=== PATIENT | female | born 1945 | race Caucasian/White ===

== ENCOUNTER 2016-07-13 11:31 | Observation (INO) | payer MEDICARE, OTHER ==
[2016-07-13 12:13] LABS: BASOPHILS 0.3 % (0.0-2.0); EOSINOPHILS 1.5 % (0.0-6.0); EOSINOPHILS# 0.1 X 10^3uL (0.0-0.4); HEMATOCRIT 40.1 % (36.0-48.0); HEMOGLOBIN 13.7 g/dL (12.0-16.0); LYMPHOCYTES# 1.4 X 10^3uL (0.8-3.8); MEAN CELL VOLUME 90.2 fL (80.0-100.0); MEAN CORPUS. HGB CONCENTRATION 34.2 g/dL (32.0-36.0); MEAN CORPUSCULAR HEMOGLOBIN 30.8 pg (29.0-35.0); MONOCYTES# 0.6 X 10^3uL (0.2-1.0); NEUTROPHILS 68.2 % (54.0-75.0); NEUTROPHILS# 4.5 X 10^3uL (2.6-6.7); RED BLOOD COUNT 4.45 X 10^6uL (4.20-6.10); RED CELL DISTRIBUTION WIDTH 12.9 % (11.5-14.5); WHITE BLOOD COUNT 6.6 X 10^3uL (3.9-10.7)
[2016-07-13 12:18] LABS: CALCIUM 9.7 mg/dL (8.4-10.2); POTASSIUM 3.7 mmol/L (3.5-5.1)
--- NOTE | 2016-07-13 12:45 | CT REPORT ---
HISTORY: Blurred vision COMPARISON: None. TECHNIQUE: Axial non-contrast images obtained from skull vertex through foramen magnum. Dose reduction technique was utilized. FINDINGS: There is mild cerebral volume loss. A right frontal ventriculostomy shunt catheter terminates in the frontal horn of right lateral ventricle. The ventricles are slitlike, due to decompression. No mass o r hemorrhage is demonstrated. There is no extra-axial fluid collection. There is bifrontal cranial hy perostosis, a normal variant. There is no fracture. Visualized paranasal sinuses are unremarkable. IMPRESSION: 1. Ventricular shunt catheter in good position, with no ventricular enlargement indicating dysfunctio n. 2. Mild cerebral volume loss. 3. Otherwise unremarkable brain, with no mass, hemorrhage, or acute infarct. Final Electronic Signature: This report was electronically signed by Solomon Lopez MD on 07/13/2016 12:43 PM. shai /
[2016-07-13] MEDS ORDERED: LIDOCAINE HCL 2% 20 ML VIAL ONE (13:48)
[2016-07-13] MEDS ORDERED: ACETAMINOPHEN 325 MG TABLET PO PRN (14:54)
[2016-07-13] MEDS ORDERED: HOME MEDICATION LIST NEEDED 1 EA EACH MC ONE (14:54)
[2016-07-13] MEDS ORDERED: NORMAL SALINE 1,000 ML IV SCH (15:00)
--- NOTE | 2016-07-13 15:43 | ER PHYSICIAN DOCUMENTATION ---
Physician Documentation [facility] Name:Sejal Hopkins Age:70 yrs Sex:Female :1945 Arrival Date:07/13/2016 Time:11:31 Bed3 Private MD: Jason Garcia Disposition: 07/13/16 14:58 Admit ordered for Julisa Arrington. Preliminary diagnosis are Diplopia, Ataxic Gait, Obstructive Hydrocephalus - NPH. - Bed requested for Medical/Surgical. - Condition is Fair. - Problem is new. - Symptoms have improved. 23 HR OBS Yes HPI: 07/13 13:46 This 70 yrs old Female presents to ER via Private Vehicle with complaints of jm Blurred Vision. 13:46 The patient is experiencing double vision, caused by an unknown mechanism. Onset: The jm symptom(s)/episode began/occurred just prior to arrival, today. Duration: the symptoms are continuous. Alleviated by nothing. Associated signs and symptoms: Pertinent positives: ataxia and myoclonic jerks. . Patient wears glasses. Severity of symptoms: in the emergency department the symptoms are unchanged. The patient has not experienced similar symptoms in the past. The patient has not recently seen a physician. 70 yo F w hx of NPH w PAINT ROLLER WINDER shunt here for acute onset of double vision. Pt states that her coordination and balance is also off. Pt has mild HAINES. . Historical: - Allergies: TETRACYCLINES; Levaquin; - Home Meds: 1. Wellbutrin XL 300 mg oral Tb24 1 tab once daily for Major Depressive Disorder 2. Lamictal oral 1 tab 2 times per day 3. Seroquel 400 mg oral tab 1 tab once daily 4. clonazepam 1 mg oral tab 1 tab Q HS 5. Ambien 5 mg oral tab 1 tab once daily 6. Deplin 15 mg oral tab 7. Multigen [id number] pt-lz-[id number]-mg oral tab 8. hydrocortisone 10 mg oral tab 9. levothyroxine 25 mcg oral tab 1 tab once daily 10. atorvastatin 10 mg oral tab 1 tab once daily 11. aspirin 81 mg oral tab 1 tab once daily 12. Zyrtec 10 mg oral tab 1 tab once daily 13. restasis - PMHx: DEPRESSION; epilepsy; normal pressure hydrocephaly; ANXIETY; insomnia; hyperlipidemia; allergic rhinitis; - PSHx: Unable to obtain; - Tetanus: < 10 years. - Ebola Screening: : Patient negative for fever greater than or equal to 101.5 degrees Fahrenheit, and additional compatible Ebola Virus Disease symptoms. Patient denies exposure to infectious person. Patient denies travel to an Ebola-affected area in the 21 days before illness onset. . - Immunization history: Pneumococcal vaccine is up to date, Flu Vaccine < 1 year. - Social history: Smoking status: Patient states was never smoker of tobacco. ROS: 14:14 Constitutional: Negative for fatigue, fever, malaise. jm 14:14 Eyes: Positive for visual disturbance. 14:14 Neck: Negative for stiffness, swelling. 14:14 Cardiovascular: Negative for chest pain, palpitations. 14:14 Respiratory: Negative for cough, shortness of breath. 14:14 Abdomen/GI: Negative for abdominal pain, nausea, vomiting, diarrhea. 14:14 Back: Negative for injury or acute deformity, decreased range of motion. 14:14 MS/extremity: Negative for injury or acute deformity, tenderness. 14:14 Neuro: Positive for dizziness, gait disturbance, headache, visual changes. 14:14 Psych: Negative for anxiety, depression. 14:14 All other systems are negative. Exam: 14:15 Constitutional: The patient appears alert, awake, comfortable. jm 14:15 Eyes: Pupils: equal, round, and reactive to light and accomodation, Extraocular movements: intact throughout, Nystagmus: nystagmus with fast component noted, bilaterally. 14:15 ENT: Mouth: is normal, Voice: is normal. 14:15 Neck: Thyroid: appears normal, Trachea: is midline with no obvious abnormalities. 14:15 Cardiovascular: Rate: normal, Rhythm: regular. 14:15 Respiratory: Respirations: normal, Breath sounds: are normal. 14:15 Abdomen/GI: Bowel sounds: normal, Palpation: abdomen is soft and non-tender. 14:15 Back: normal spinal alignment noted, CVA tenderness, is absent. 14:15 Musculoskeletal/extremity: ROM: intact in all extremities, Sensation intact. Weight bearing: can bear weight with assistance only. 14:15 Skin: Appearance: Color: pink, no rash present. 14:15 Neuro: Mentation: is normal, Memory: is normal, Cranial nerves: CN II- XII are normal as tested, Cerebellar function: dysmetria is noted on both sides, Motor: strength is 5/5 in all extremities, Sensation: is normal, Gait: ataxic. 14:15 Psych: Behavior/mood is pleasant, cooperative, Affect is calm. Vital Signs: 11:48 BP 177 / 80; Pulse 86; Resp 16; Temp 98.0(O); Pulse Ox 97% on R/A; Weight 68.04 kg; lp Height 5 ft. 10 in. (177.80 cm); Pain 0/10; 11:55 BP 176 / 94; Pulse 84; Resp 18; Pulse Ox 97% on R/A; lc 12:14 BP 173 / 86; Pulse 84; Resp 18; Pulse Ox 95% ; lc 12:56 BP 169 / 78; Pulse 80; Resp 16; Pulse Ox 93% ; Pain 2/10; lc 13:15 BP 167 / 73; Pulse 85; Resp 19; Pulse Ox 94% on R/A; Pain 0/10; rs 13:30 BP 158 / 79; Pulse 85; Resp 18; Pulse Ox 93% on R/A; Pain 0/10; rs 13:51 BP 179 / 83; Pulse 89; Resp 21; Pulse Ox 93% on R/A; Pain 0/10; rs 14:00 BP 167 / 90; Pulse 88; Resp 18; Pulse Ox 96% on R/A; Pain 0/10; rs 14:16 BP 186 / 91; Pulse 96; Resp 18; Pulse Ox 96% on R/A; Pain 0/10; rs 11:48 Body Mass Index 21.52 (68.04 kg, 177.80 cm) lp Procedures: 14:18 Lumbar Puncture: Patient placed in sitting position. Prepped with Betadine. Collected jm 25 ml's of clear fluid. Puncture site dressed with band aid, Patient tolerated well. MDM: 11:35 Patient medically screened. jm 14:16 Differential diagnosis: PAINT ROLLER WINDER shunt malfunction, NPH exacerbation. Data reviewed: vital jm signs, nurses notes, lab test result(s), and as a result, I will initiate a consult, with a neurosurgeon. Counseling: I had a detailed discussion with the patient and/or guardian regarding: the historical points, exam findings, and any diagnostic results supporting the discharge/admit diagnosis, lab results, radiology results, the need for outpatient follow up, a neurosurgeon. Response to treatment: the patient's symptoms have markedly improved after treatment. Physician consultation: Dr Liao regarding patient's condition, Neurosurgery from [facility]. He states that pulling off some CSF should alleviate her sx and buy her some time to f/u her neurosurgeon back in [place]. Pt agreeable to this. . 14:56 Admission orders: after a detailed discussion of the patient's condition and case, the admit orders are written by me. ED course: LP done, but pt still w mild diplopia, so I feel an observation admission is warranted. Dr. Arrington agrees. Pt hopefully w improve to the point where she can drive by tomorrow AM. 07/13 12:16 Order name: CBC AUTO DIF, MDIF/RMOR IF IND; Complete Time: 12:54 EDMS 07/13 12:38 Order name: PROTIME/INR; Complete Time: 12:54 EDMS 07/13 12:39 Order name: BASIC METABOLIC PANEL; Complete Time: 12:54 EDMS 07/13 12:11 Order name: CAT SCAN; HEAD W/O CON [id number] EDNV 07/13 12:48 Order name: CAT SCAN; HEAD W/O CON [id number]; Complete Time: 12:54 EDMS 07/13 11:57 Order name: Iv Saline Lock; Complete Time: 12:10 Dispensed Medications: Completed: NS 0.9% 1000 ml IV at bolus once 12:10 Drug: NS 0.9% 1000 ml; Route: IV; Rate: bolus; Site: right forearm; lp 14:00 Follow up: IV Status: Completed infusion rs Point of Care Testing: Urine Dip: 12:50 pH: 6.0; ; Specific [place]: 1.010; Ketones: Negative; Glucose: Negative; Protein: lc Negative; Leukocytes: Negative; Nitrite: Negative ; Blood: Small (+); Bilirubin: Negative ; Urobilinogen: Normal Signatures: Natalya Baez RN RN rs Pavlish, Lena, RN RN lp Meyer, John, MD MD jm
--- NOTE | 2016-07-13 15:43 | ER NURSING DOCUMENTATION ---
Nurse's Notes [facility] Name:Sejal Hopkins Age:70 yrs Sex:Female :1945 Arrival Date:07/13/2016 Time:11:31 Bed3 Private MD: Diagnosis:Diplopia;Ataxic Gait;Obstructive Hydrocephalus-NPH Presentation: 07/13 11:43 Presenting complaint: Patient states: dizziness. Transition of care: Home. lp 11:43 Method Of Arrival: Private Vehicle lp 11:43 Acuity: ANGELINA 3 lp Triage Assessment: 11:51 General: Appears in no apparent distress, Behavior is appropriate for age. Pain: Denies lp pain. Historical: - Allergies: TETRACYCLINES; Levaquin; - Home Meds: 1. Wellbutrin XL 300 mg oral Tb24 1 tab once daily for Major Depressive Disorder 2. Lamictal oral 1 tab 2 times per day 3. Seroquel 400 mg oral tab 1 tab once daily 4. clonazepam 1 mg oral tab 1 tab Q HS 5. Ambien 5 mg oral tab 1 tab once daily 6. Deplin 15 mg oral tab 7. Multigen [id number] qu-us-kln-mg oral tab 8. hydrocortisone 10 mg oral tab 9. levothyroxine 25 mcg oral tab 1 tab once daily 10. atorvastatin 10 mg oral tab 1 tab once daily 11. aspirin 81 mg oral tab 1 tab once daily 12. Zyrtec 10 mg oral tab 1 tab once daily 13. restasis - PMHx: DEPRESSION; epilepsy; normal pressure hydrocephaly; ANXIETY; insomnia; hyperlipidemia; allergic rhinitis; - PSHx: Unable to obtain; - Tetanus: < 10 years. - Ebola Screening: : Patient negative for fever greater than or equal to 101.5 degrees Fahrenheit, and additional compatible Ebola Virus Disease symptoms. Patient denies exposure to infectious person. Patient denies travel to an Ebola-affected area in the 21 days before illness onset. . - Immunization history: Pneumococcal vaccine is up to date, Flu Vaccine < 1 year. - Social history: Smoking status: Patient states was never smoker of tobacco. Screenin:54 Infectious Disease Risk None. Abuse screen: Denies threats or abuse. Denies injuries lp from another. Nutritional screening: No deficits noted. Assessment: 11:53 General: Appears in no apparent distress, Behavior is appropriate for age. Neuro: Level lp of Consciousness is awake, alert, Oriented to person, place, time, event, Material Control Analyst are equal bilaterally Moves all extremities. Reports blurred vision dizziness. EENT: Reports blurred vision since This morning. Cardiovascular: No deficits noted. Capillary refill < 3 seconds Pulses are all present. Respiratory: Airway is patent Trachea midline Respiratory effort is even, unlabored, Respiratory pattern is regular, symmetrical. GI: No deficits noted. : No deficits noted. Derm: No deficits noted. 12:56 Reassessment: UP TO COMMODE, SHAKEY ON FEET, US DONE, STILL C/O DIZZINESS, SL HAINES. NEURO lc CONSULT DONE.. Vital Signs: 11:48 BP 177 / 80; Pulse 86; Resp 16; Temp 98.0(O); Pulse Ox 97% on R/A; Weight 68.04 kg; lp Height 5 ft. 10 in. (177.80 cm); Pain 0/10; 11:55 BP 176 / 94; Pulse 84; Resp 18; Pulse Ox 97% on R/A; lc 12:14 BP 173 / 86; Pulse 84; Resp 18; Pulse Ox 95% ; lc 12:56 BP 169 / 78; Pulse 80; Resp 16; Pulse Ox 93% ; Pain 2/10; lc 13:15 BP 167 / 73; Pulse 85; Resp 19; Pulse Ox 94% on R/A; Pain 0/10; rs 13:30 BP 158 / 79; Pulse 85; Resp 18; Pulse Ox 93% on R/A; Pain 0/10; rs 13:51 BP 179 / 83; Pulse 89; Resp 21; Pulse Ox 93% on R/A; Pain 0/10; rs 14:00 BP 167 / 90; Pulse 88; Resp 18; Pulse Ox 96% on R/A; Pain 0/10; rs 14:16 BP 186 / 91; Pulse 96; Resp 18; Pulse Ox 96% on R/A; Pain 0/10; rs 11:48 Body Mass Index 21.52 (68.04 kg, 177.80 cm) lp ED Course: 11:32 Patient arrived in ED. cc 11:36 Jason Sanches MD is Attending Physician. jm 11:43 Margarette Toledo, RN is Primary Nurse. lp 11:43 Triage completed. lp 11:[address] Sanches notified. lp 11:54 Valuables Remains with patient Patient has correct armband on for positive lp identification. Placed in gown. Bed in low position. Call light in reach. Side rails up X 1. Cardiac Monitoring On for Nurse Monitoring only. Pulse Ox - RN Monitoring Only NIBP On - RN Monitoring Only. 11:54 Inserted peripheral IV: 20 gauge in right forearm. lp 11:54 Inserted peripheral IV: 20 gauge in right forearm and blood collected. lp 11:[address] kamari 12:11 CAT SCAN; HEAD W/O CON 01100 In Process Unspecified. EDMS 12:12 Patient moved back from CT. tt 13:50 Door closed. Noise minimized. Verbal reassurance given. Warm blanket given. Sitting up rs on side of bed with bedside table to bend over and lean on. Blankets over her shoulders. Pulse ox, monitor and BP on. 13:50 Assist Provider Assist provider with lumbar puncture: Set up LP tray. Performed by Jason Sanches MD CSF is clear. Puncture site dressed with band aid, Procedure was successful. Patient tolerated well. Finished procedure at 1412. Pt feels good. Double vision remains. Assisted with phone call to her brother. 14:57 Julisa Arrington MD is Admitting Physician. nadine Administered Medications: Completed: NS 0.9% 1000 ml IV at bolus once 12:10 Drug: NS 0.9% 1000 ml; Route: IV; Rate: bolus; Site: right forearm; lp 14:00 Follow up: IV Status: Completed infusion Point of Care Testing: Urine Dip: 12:50 pH: 6.0; ; Specific [place]: 1.010; Ketones: Negative; Glucose: Negative; Protein: lc Negative; Leukocytes: Negative; Nitrite: Negative ; Blood: Small (+); Bilirubin: Negative ; Urobilinogen: Normal Outcome: 14:58 Decision to Admit by Provider. 15:40 Admitted to Med/surg accompanied by nurse, via stretcher, with chart. rs 15:40 Condition: improved 15:40 Instructed on need to admit Demonstrated understanding of instructions. 15:42 Patient left the ED. rs Signatures: Dispatcher [employer] EDVT Natalya Baez RN RN rs Shadia Aaron RN RN lc Pavlish, Lena, RN RN lp Meyer, John, MD MD jm Terriere, Tracy tt Abbott, Laura lea Cramer, Ruthie zambrano
[2016-07-13] MEDS: ZOLPIDEM TARTRATE 5 MG TABLET PO SCH (21:00)
[2016-07-13] MEDS: LAMOTRIGINE 250 MG PO SCH (21:00)
[2016-07-13] MEDS: clonazePAM 0.5 MG TABLET PO SCH (21:00)
[2016-07-13] MEDS: QUETIAPINE FUMARATE 400 MG PO SCH (21:00)
[2016-07-13] MEDS: HYDROCORTISONE 10 MG PO SCH (21:00)
[2016-07-14] MEDS: DOCUSATE SODIUM 100 MG CAPSULE PO SCH ×3 (06:42→20:33)
[2016-07-14] MEDS: ATORVASTATIN CALCIUM 10 MG TABLET PO SCH ×2 (06:45→20:40)
[2016-07-14] MEDS: CYCLOSPORINE OPHTH 0.05% 1 DROP/0.4 ML DROPERETTE EACHEYE SCH ×3 (06:46→20:41)
--- NOTE | 2016-07-14 07:14 | HISTORY & PHYSICAL ---
DATE OF ADMISSION: 07/13/16 ATTENDING PHYSICIAN: Julisa Arrington MD HISTORY OF PRESENT ILLNESS: This very interesting and pleasant 70-year-old lady is visiting from [place]. She has been in [place] for a week, somewhat sedentary because of our recent huge snow. Today, she was driving her rental car towards the airport and noted that she was not in her usual condition. She felt that her thinking was fuzzy. 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 She came to the Emergency Room, took some Meclizine in order to negotiate walking into the Emergency Room, feeling somewhat dizzy and having fairly frequent myoclonic jerks. The patient had just seen her neurosurgeon 2 weeks ago for assessment of her longstanding ventriculoperitoneal shunt. The pressure setting was apparently set to 1.5 and the neurosurgeon felt content that all was as should be. The CT in the Emergency Room did not show any dilation of ventricular spaces. Dr. Gay was so good as to speak with a Dr. Liao Neurosurgery at [facility] regarding the situation. Dr. Gay removed 20 mL of cerebrospinal fluid as directed by neurosurgery, and in fact that the patient feels that her symptoms are markedly improved over the last 6 hours. The diplopia continues and is not corrected by her lenses as it usually is. However , the fuzzy thinking and the tight feeling in her body, the frequent myoclonic jerks (they were happening every 30 seconds) have resolved. The patient is encouraged, although not quite sure what to do to plan her return to [facility] and is here for observation overnight in hopes that her neurological complaints will completely resolve or nearly completely resolve so she can fly home to consider all with her neurosurgeon again. She understands that if things go the other way and we have increasing concerns, she will need to be transferred to a larger medical center. PAST MEDICAL HISTORY 1. Depression. 2. Anxiety. 3. Bipolar illness. 4. Normal pressure hydrocephalus for which she has the shunt. 5. Insomnia. 6. Hyperlipidemia. 7. Allergic rhinitis. PAST SURGICAL HISTORY 1. The shunt was placed originally in 2008. It was replaced spring a year ago. 2. She has had a right knee replacement. 3. Extensive left shoulder surgery. 4. 1 year ago because of some right sided pain, she had a series of abdominal surgeries including removal of a benign adrenal tumor, appendectomy, partial colectomy and cholecystectomy. She has had no known complications from these procedures. MEDICATIONS Wellbutrin XL 300 mg p.o. daily. Lamictal 250 mg p.o. b.i.d. Seroquel 400 mg at h.s. Clonazopam 1 mg p.o. at h.s. Ambien 5 mg p.o. at h.s. Deplin which is a vitamin of some sort 15 mg p.o. daily. Multigen vitamin also about 3 times a week. Hydrocortisone she normally 5 mg in the evening and 10 mg in the a.m. Levothyroxine 25 mcg p.o. daily. Atorvastatin 10 mg p.o. daily. Aspirin 81 mg p.o. daily. Zyrtec 10 mg p.o. daily. Restasis eye drops. ALLERGIES: Tetracyclines and Levaquin. SOCIAL HISTORY: She does not smoke. She does not drink alcohol. She is a retired teacher living in [place] but loving to vacation in [place] in the summer. She has not had any problems at altitude with her shunt before, and clearly she has had the shunt for quite a few years. REVIEW OF SYSTEMS: Negative until the events this afternoon which brought her to the Emergency Room. DATA FROM EMERGENCY ROOM: Negative CT of the head showing appropriately functioning shunt, completely normal chemistry, CBC and an INR of 1. PHYSICAL EXAMINATION VITAL SIGNS: The vital signs on the floor, she is afebrile. Blood pressure is 141/68, pulse 78, respiratory rate 12. She is 93% on room air at rest. GENERAL: She is a pleasant lady in no acute distress. HEENT: She does tend to squint 1 eye or the other shunt in order to cope with the diplopia. The is no obvious divergent gaze. Extraocular movements are grossly intact. Other cranial nerves are unremarkable and symmetric. CARDIAC: Distant S1, S2. No murmur. CHEST: Clear to auscultation. ABDOMEN: Slightly protuberant, soft and nontender. EXTREMITIES: Without edema. Negative Homans sign. NEUROLOGIC: Cranial nerves are symmetric as stated. The pupils are equal, round and reactive to light. Strength is good in upper and lower extremities. She does not have any tingling or numbness to complain of. ASSESSMENT AND PLAN 1. Very discrete neurologic complaints which have improved with removal of cerebrospinal fluid as directed by neurosurgery. It does not appear that there is any gross dysfunction of her shunt. The hope is with overnight monitoring she will feel safe and functional enough to be able to travel home to take up this event with her neurosurgeon. However, if things deteriorate, she knows that we will need to transfer her to a larger medical center. 2. Chronic medical issues. Her usual medications will be continued at their normal doses, although I would see a role for increasing her Hydrocortisone this evening as this is certainly a stressful situation. 3. Deep vein thrombosis prophylaxis. Patient shows willingness and comfort level with walking with staff this evening and REG hose will be applied. We will avoid Lovenox as she has just had a lumbar puncture and I really do not believe it will be long before she is ambulatory. MTDD
--- NOTE | 2016-07-14 09:05 | PROGRESS NOTE: IM SOAP ---
IM: PN Subjective General: no pain HEENT: visual changes (but back to baseline) Neurological: limb weakness (does feel weak after walking), no headache IM: PN Objective Exam - I&O/Vital Signs I&O: Intake & Output 07/13/16 07/14/16 07/14/16 21:59 05:59 13:59 Intake Total 420 350 Output Total 600 600 200 Balance -180 -250 -200 Intake: Oral 420 350 Output: Urine 600 600 200 Other: Urine Appearance Clear Clear Clear Urine Color Pale Yellow Voiding Method Toilet Bedside Commode Toilet # Voids 3 # Bowel Movements 0 Vital Signs: Last Vital Signs Temp 36.8 C 07/14/16 06:23 Pulse 76 07/14/16 06:23 Resp 15 07/14/16 06:23 BP 143/72 07/14/16 06:23 Pulse Ox 94 07/14/16 06:23 Oxygen Delivery Method Room Air - Constitutional General appearance: Present: average body habitus - Head Head exam: Present: atraumatic - Eye Eye exam: Present: EOMI, PERRL - ENT ENT exam: Present: mucous membranes moist - Neck Neck exam: Absent: lymphadenopathy, meningismus - Respiratory Respiratory exam: Present: clear - Cardiovascular Cardiovascular exam: Present: RRR - GI/Abdominal GI/Abdominal exam: Present: soft - Extremities Exam Extremities exam: Absent: edema - Neurological Exam Neurological exam: Present: alert, oriented X3 - Psychiatric Psychiatric exam: Present: normal affect - Lab Labs: Laboratory Last Values WBC 6.6 X 10^3uL (3.9-10.7) 07/13/16 14:14 RBC 4.45 X 10^6uL (4.20-6.10) 07/13/16 14:14 Hgb 13.7 g/dL (12.0-16.0) 07/13/16 14:14 Hct 40.1 % (36.0-48.0) 07/13/16 14:14 MCV 90.2 fL (80.0-100.0) 07/13/16 14:14 MCH 30.8 pg (29.0-35.0) 07/13/16 14:14 MCHC 34.2 g/dL (32.0-36.0) 07/13/16 14:14 RDW 12.9 % (11.5-14.5) 07/13/16 14:14 Plt Count 335 X 10^3uL (130-440) 07/13/16 14:14 MPV 7.0 fL (7.4-10.4) L 07/13/16 14:14 Neutrophils % 68.2 % (54.0-75.0) 07/13/16 14:14 Lymphocytes % 21.0 % (20.0-40.0) 07/13/16 14:14 Eosinophils % 1.5 % (0.0-6.0) 07/13/16 14:14 Basophils % 0.3 % (0.0-2.0) 07/13/16 14:14 Neutrophils # 4.5 X 10^3uL (2.6-6.7) 07/13/16 14:14 Lymphocytes # 1.4 X 10^3uL (0.8-3.8) 07/13/16 14:14 Monocytes 9.0 % (2.0-10.0) 07/13/16 14:14 Monocytes # 0.6 X 10^3uL (0.2-1.0) 07/13/16 14:14 Eosinophils # 0.1 X 10^3uL (0.0-0.4) 07/13/16 14:14 Basophils # 0.0 X 10^3uL (0.0-0.1) 07/13/16 14:14 PT 14.0 sec (13.0-16.6) 07/13/16 14:14 INR 1.0 07/13/16 14:14 Sodium 142 mmol/L (137-145) 07/13/16 14:14 Potassium 3.7 mmol/L (3.5-5.1) 07/13/16 14:14 Chloride 101 mmol/L (98-107) 07/13/16 14:14 Carbon Dioxide 27 mmol/L (22-30) 07/13/16 14:14 BUN 12 mg/dL (7-17) 07/13/16 14:14 Creatinine 1.0 mg/dL (0.5-1.0) 07/13/16 14:14 GFR Calculation 58 mL/min 07/13/16 14:14 Glucose 79 mg/dL (70-100) 07/13/16 14:14 Calcium 9.7 mg/dL (8.4-10.2) 07/13/16 14:14 Assessment and Plan - Date of Encounter Date of Encounter: 07/14/16 (1) Diplopia Status: Chronic Assessment and plan: The acute portion is resolved. Pt is using her phone with corrective lenses and is reassured. Current Visit: Yes (2) Myoclonic jerking Status: Resolved Assessment and plan: Resolved after aspiration of 20 cc CSF Current Visit: Yes (3) Normal pressure hydrocephalus Status: Chronic Assessment and plan: Has CUSTOMER SPECIALIST shunt which by CT appears to be working well. I am not sure why she is having these issues 2 wks after seeing neurosurg with good shunt assessment, but if she is clinically improved and able to travel, she will return to [place] and review all with her doc. This episode reviewed with neurosurgery by ED doc yesterday, and this plan approved. Will have PT assess and let pt take some time to assure safe to travel and make her travel arrangements. Current Visit: Yes - Time Spent With Patient Total time spent with greater than 50% in coordination of care (as documented) at patient's floor/unit and/or counseling patient: Quality Questions - VTE Prophylaxis Assessment VTE Present on Admission?: No Patient at risk for venous thromboembolism?: Yes VTE Risk Level: Low Risk Pharmaceutical VTE prophylaxis contraindication reason: not indicated Mechanical VTE prophylaxis contraindication reason: N/A- VTE prophylaxsis ordered
[2016-07-14] MEDS: buPROPion XL DAILY 150 MG TABLET PO SCH (09:07)
[2016-07-14] MEDS: LEVOTHYROXINE 25 MCG TABLET PO SCH (09:08)
[2016-07-14] MEDS: HYDROCORTISONE 10 MG PO SCH ×2 (09:42→20:35)
[2016-07-14] MEDS: LAMOTRIGINE 250 MG PO SCH ×2 (09:42→20:34)
[2016-07-14] MEDS: QUETIAPINE FUMARATE 400 MG PO SCH (20:35)
[2016-07-14] MEDS: ZOLPIDEM TARTRATE 5 MG TABLET PO SCH (20:40)
[2016-07-14] MEDS: clonazePAM 0.5 MG TABLET PO SCH (20:41)
[2016-07-15] MEDS: DOCUSATE SODIUM 100 MG CAPSULE PO SCH (09:24)
[2016-07-15] MEDS: LEVOTHYROXINE 25 MCG TABLET PO SCH (09:25)
[2016-07-15] MEDS: CYCLOSPORINE OPHTH 0.05% 1 DROP/0.4 ML DROPERETTE EACHEYE SCH (09:25)
[2016-07-15] MEDS: HYDROCORTISONE 10 MG PO SCH (09:25)
[2016-07-15] MEDS: buPROPion XL DAILY 150 MG TABLET PO SCH (09:25)
[2016-07-15] MEDS: LAMOTRIGINE 250 MG PO SCH (09:25)
--- NOTE | 2016-07-15 11:04 | DC SUMMARY: IM Note ---
Discharge Summary: IM/Peds Provider: Date of Admission: 07/13/16 Admitting Provider: JOLENE SANTO MD Attending Provider: JOLENE SANTO MD Discharging Provider: JOLENE SANTO MD Primary Care Provider: Discharge Date: 07/15/16 - Diagnosis (1) Diplopia Status: Chronic (2) Myoclonic jerking Status: Resolved (3) Normal pressure hydrocephalus Status: Chronic Hospital Course: See H&P and progress note; pt has progressed nicely as expected, with complete resolution of neurologic symptoms after aspiration of 20cc CSF by ED doc, at advice of consulting [place] neurosurgeon; she feels great showering, walking, self care. PT has rec'd walker and she has a loaner. She will return to [facility] until travel plans begin on Tuesday. She will contact me if symptoms or problems recur. - Time Spent with Patient Total time spent providing and/or coordinating discharge services: Discharge - Patient/Caregiver Discharge Instructions Activity Level: Take it easy; sounds like you are more stable with the walker, so use it while you have it! I approve of getting assistance and wheelchair to/ at airport, all the way home. Diet: Usual Additional Instructions: See your neurosurgeon XUAN to review all. Disposition: HOME, SELF-CARE Discharge Summary Data - Medication History Medication History: Home Medications Atorvastatin Calcium [Lipitor*] 10 mg PO HS 07/13/16 Cetirizine HCl [Zyrtec] 10 mg PO HS 07/13/16 Cyclosporine Ophth 0.05% [Restasis Ophth Emul 0.05%] 1 drop EACHEYE BID Docusate Sodium [Colace*] 100 mg PO BID 07/13/16 Hydrocortisone 5 mg PO HS 07/13/16 Hydrocortisone 10 mg PO DAILY 07/13/16 Lamotrigine 200 mg PO BID 07/13/16 Levomefolate/Algal Oil [Deplin-Algal Oil 15 mg Capsule] 1 cap PO DAILY 07/13/16 Levothyroxine [Synthroid*] 25 mcg PO DAILY 07/13/16 Multivitamins,Therapeutic [Thera Multivitamin*] 1 udtab PO DAILY 07/13/16 Quetiapine Fumarate [Seroquel Xr] 400 mg PO HS 07/13/16 Zolpidem Tartrate [Ambien*] 5 mg PO HS 07/13/16 aspirin EC [Aspirin EC*] 81 mg PO DAILY 07/13/16 buPROPion XL DAILY [Wellbutrin Xl Daily*] 300 mg PO DAILY 07/13/16 clonazePAM [Klonopin*] 1 mg PO HS 07/13/16 Inpatient Medications 07/13/16 21:00 Atorvastatin Calcium [Lipitor] 10 mg PO HS Cyclosporine Ophth 0.05% [Restasis Ophth Emul 0.05%] 1 drop EACHEYE BID Docusate Sodium [Colace] 100 mg PO BID Hydrocortisone [Hydrocortisone] 10 mg PO BID Lamotrigine [Lamotrigine] 250 mg PO BID Quetiapine Fumarate [Seroquel Xr] 400 mg PO HS Zolpidem Tartrate [Ambien] 5 mg PO HS clonazePAM [KlonoPIN] 1 mg PO HS 07/14/16 09:00 Levothyroxine [Synthroid] 25 mcg PO DAILY aspirin EC [Ecotrin 81 mg] 81 mg PO DAILY buPROPion XL DAILY [Wellbutrin Xl Daily] 300 mg PO DAILY Procedures and tests throughout hospitalization: Pending Orders 07/13/16 20:04 Activity: Ambulate with Assist TID REG Hose . 07/13/16 21:00 Atorvastatin Calcium [Lipitor] 10 mg PO HS Cyclosporine Ophth 0.05% [Restasis Ophth Emul 0.05%] 1 drop EACHEYE BID Docusate Sodium [Colace] 100 mg PO BID Hydrocortisone [Hydrocortisone] 10 mg PO BID Lamotrigine [Lamotrigine] 250 mg PO BID Quetiapine Fumarate [Seroquel Xr] 400 mg PO HS Zolpidem Tartrate [Ambien] 5 mg PO HS clonazePAM [KlonoPIN] 1 mg PO HS 07/14/16 09:00 Levothyroxine [Synthroid] 25 mcg PO DAILY aspirin EC [Ecotrin 81 mg] 81 mg PO DAILY buPROPion XL DAILY [Wellbutrin Xl Daily] 300 mg PO DAILY 07/15/16 10:55 Discharge ONCE IM: Discharge Physical Exam - I&O/Vital Signs I&O: Intake & Output 07/14/16 07/15/16 07/15/16 21:59 05:59 13:59 Intake Total 1160 400 Output Total 1325 400 Balance -165 0 Intake: Oral 1160 400 Output: Urine 1325 400 Other: Urine Appearance Clear Clear Urine Color Pale Yellow Stool Size Moderate Stool Characteristics Soft Voiding Method Toilet Toilet # Bowel Movements 1 Vital Signs: Last Vital Signs Temp 36.8 C 07/15/16 06:40 Pulse 70 07/15/16 06:40 Resp 16 07/15/16 06:40 BP 105/55 07/15/16 06:40 Pulse Ox 92 07/15/16 06:40 Oxygen Delivery Method Room Air - Constitutional General appearance: Present: average body habitus - Head Head exam: Present: atraumatic - Eye Eye exam: Present: EOMI, PERRL - ENT ENT exam: Present: mucous membranes moist - Neck Neck exam: Absent: lymphadenopathy, meningismus - Respiratory Respiratory exam: Present: clear - Cardiovascular Cardiovascular exam: Present: RRR - GI/Abdominal GI/Abdominal exam: Present: soft - Extremities Exam Extremities exam: Absent: edema - Neurological Exam Neurological exam: Present: alert, oriented X3 - Psychiatric Psychiatric exam: Present: normal affect
[2016-07-15 11:33] VITALS: BP 120/67; PULSE 91; RESP 20; TEMP 98.5; O2SAT 94
== END 2016-07-15 10:55 | disposition home or self-care (01) ==
LOC: ER 11:31 → IN 15:17
PROVIDERS: ADMIT Family Medicine; ATTEND Family Medicine
DX: H53.2 Diplopia (principal); G25.3 Myoclonus; G91.2 (Idiopathic) normal pressure hydrocephalus; F41.8 Other specified anxiety disorders; F31.9 Bipolar disorder, unspecified; G47.00 Insomnia, unspecified; E78.5 Hyperlipidemia, unspecified; J30.9 Allergic rhinitis, unspecified; Z79.899 Other long term (current) drug therapy
CPT/HCPCS: 62270; 70450; 80048; 85025; 85610; 96360; 96361; 99285; G0378; G8978; G8979

== ENCOUNTER 2016-07-16 10:45 | Emergency (ER) | payer MEDICARE, OTHER ==
[2016-07-16 11:41] LABS: BASOPHILS 0.9 % (0.0-2.0); EOSINOPHILS 1.6 % (0.0-6.0); EOSINOPHILS# 0.1 X 10^3uL (0.0-0.4); HEMATOCRIT 39.9 % (36.0-48.0); HEMOGLOBIN 13.9 g/dL (12.0-16.0); LYMPHOCYTES 16.9 % (20.0-40.0); LYMPHOCYTES# 0.9 X 10^3uL (0.8-3.8); MEAN CELL VOLUME 90.4 fL (80.0-100.0); MEAN CORPUS. HGB CONCENTRATION 34.9 g/dL (32.0-36.0); MEAN CORPUSCULAR HEMOGLOBIN 31.5 pg (29.0-35.0); MEAN PLATELET VOLUME 6.8 fL (7.4-10.4); MONOCYTES 8.6 % (2.0-10.0); MONOCYTES# 0.5 X 10^3uL (0.2-1.0); NEUTROPHILS# 4.1 X 10^3uL (2.6-6.7); RED BLOOD COUNT 4.41 X 10^6uL (4.20-6.10); WHITE BLOOD COUNT 5.6 X 10^3uL (3.9-10.7)
[2016-07-16 11:51] LABS: CALCIUM 9.4 mg/dL (8.4-10.2); CREATININE 1.1 mg/dL (0.5-1.0); POTASSIUM 4.2 mmol/L (3.5-5.1)
--- NOTE | 2016-07-16 12:50 | ER PHYSICIAN DOCUMENTATION ---
Physician Documentation [facility] Name:Sejal Hopkisn Age:70 yrs Sex:Female :1945 Arrival Date:07/16/2016 Time:10:45 Bed2 Private MD: Teddy Watts Disposition: 07/16/16 12:34 Transfer ordered to [facility]. Diagnosis is Obstructive Hydrocephalus. - Reason for transfer: Higher level of care. - Accepting physician is Hospitalist Dr. Pérez. - Condition is Good. - Problem is new. - Symptoms are unchanged. COBRA Form completed? Yes Transfer - Mode of Transportation Ambulance HPI: 07/16 12:26 This 70 yrs old Female presents to ER via Private Vehicle with complaints of sc Dizziness. 12:26 The patient presents with generalized weakness, lightheadedness. Onset: The sc symptom(s)/episode began/occurred last week, and became worse 3 day(s) ago. Modifying factors: The symptoms are alleviated by nothing, Then much better after LP last night but recurrent today,. Associated signs and symptoms: Pertinent positives: ataxia, blurred vision. The patient has experienced similar episodes in the past, multiple times. Historical: - Allergies: TETRACYCLINES; Levaquin; - Home Meds: 1. Wellbutrin XL 300 mg oral Tb24 1 tab once daily for Major Depressive Disorder 2. Lamictal oral 1 tab 2 times per day 3. Seroquel 400 mg oral tab 1 tab once daily 4. clonazepam 1 mg oral tab 1 tab Q HS 5. Ambien 5 mg oral tab 1 tab once daily 6. Deplin 15 mg oral tab 7. Multigen [id number]-mg oral tab 8. hydrocortisone 10 mg oral tab 9. levothyroxine 25 mcg oral tab 1 tab once daily 10. atorvastatin 10 mg oral tab 1 tab once daily 11. aspirin 81 mg oral tab 1 tab once daily 12. Zyrtec 10 mg oral tab 1 tab once daily 13. Restasis opht - PMHx: DEPRESSION; epilepsy; normal pressure hydrocephaly; ANXIETY; insomnia; hyperlipidemia; allergic rhinitis; Diplopia (July 13, 2016); Ataxic Gait (July 13, 2016); Obstructive Hydrocephalus - NPH (July 13, 2016); - PSHx: sunt; - Tetanus: < 10 years. - Ebola Screening: : Patient denies exposure to infectious person. Patient denies travel to an Ebola-affected area in the 21 days before illness onset. . - Social history: Smoking status: Patient states was never smoker of tobacco. Patient/guardian denies using alcohol, marijuana. ROS: 12:28 Constitutional: Negative for fever, chills, and weight loss. sc Eyes: Negative for injury, pain, redness, and discharge. ENT: Negative for injury, pain, and discharge. Neck: Negative for injury, pain, and swelling. Cardiovascular: Negative for chest pain, palpitations, and edema. Abdomen/GI: Negative for abdominal pain, nausea, vomiting, diarrhea, and constipation. Back: Negative for injury and pain. MS/Extremity: Negative for injury and deformity. 12:28 Skin: Negative for injury, rash, and discoloration. sc 12:28 Neuro: Positive for dizziness, gait disturbance, tremor, weakness. Exam: Constitutional: This is a well developed, well nourished patient who is awake, alert, and in no acute distress. Head/Face: Normocephalic, atraumatic. ENT: Nares patent. No nasal discharge, no septal abnormalities noted. Tympanic membranes are normal and external auditory canals are clear. Oropharynx with no redness, swelling, or masses, exudates, or evidence of obstruction, uvula midline. Mucous membranes moist. Neck: Trachea midline, no thyromegaly or masses palpated, and no cervical lymphadenopathy. Supple, full range of motion without nuchal rigidity, or vertebral point tenderness. No meningismus. Chest/axilla: Normal chest wall appearance and motion. Nontender with no deformity. No lesions are appreciated. Cardiovascular: Regular rate and rhythm with a normal S1 and S2. No gallops, murmurs, or rubs. Normal PMI, no JVD. No pulse deficits. Respiratory: Lungs have equal breath sounds bilaterally, clear to auscultation and percussion. No rales, rhonchi or wheezes noted. No increased work of breathing, no retractions or nasal flaring. Abdomen/GI: Soft, non-tender, with normal bowel sounds. No distension or tympany. No guarding or rebound. No evidence of tenderness throughout. Back: No spinal tenderness. No costovertebral tenderness. Full range of motion. 12:29 Skin: Warm, dry with normal turgor. Normal color with no rashes, no lesions, and no sc evidence of cellulitis. 12:29 Eyes: Pupils: equal, round, and reactive to light and accomodation, Extraocular movements: gaze deviation towards the , Visual espinoza: diplopia. Nystagmus: nystagmus with fast component noted, bilaterally. 12:34 Neuro: Orientation: is normal, Cerebellar function: unable to test, Gait: is unsteady, sc ataxic. Vital Signs: 10:55 BP 164 / 89 LA Sitting (auto/reg); Pulse 85 LA; Resp 14 S; Temp 98.2(O); Pulse Ox 94% em3 on R/A; Weight 68.04 kg (R); Height 5 ft. 10 in. (177.80 cm) (R); Pain 0/10; 12:36 BP 165 / 81; Pulse 82; Pulse Ox 96% ; st 10:55 Body Mass Index 21.52 (68.04 kg, 177.80 cm) em3 MDM: 10:59 Patient medically screened. md 12:30 Differential diagnosis: CVA, generalized weakness, TIA, vertigo, ? Recurrent sc hydrocephalus. Data reviewed: vital signs, nurses notes, old medical records, lab test result(s), and as a result, I will *Transfer Patient. 12:34 Physician consultation: Reinaldo Pérez was called at 12:34, was contacted at 12:34, md regarding patient's condition. 07/16 11:45 Order name: CBC AUTO DIF, MDIF/RMOR IF IND; Complete Time: 12:01 [facility] 07/16 12:01 Interpretation: Normal: Normal. md 07/16 11:53 Order name: BASIC METABOLIC PANEL; Complete Time: 12:01 [facility] 07/16 12:01 Interpretation: Normal. md Dispensed Medications: 11:32 Drug: NS 0.9% 1000 ml; Route: IV; Rate: bolus; Site: right antecubital; st 12:49 Follow up: IV Status: Infusing continued upon transfer st Signatures: Nan Gunter, RN Teddy Mckeon MD MD md
--- NOTE | 2016-07-16 12:50 | ER NURSING DOCUMENTATION ---
Nurse's Notes [facility] Name:Sejal Hopkins Age:70 yrs Sex:Female :1945 Arrival Date:07/16/2016 Time:10:45 Bed2 Private MD: Diagnosis:Obstructive Hydrocephalus Presentation: 07/16 10:53 Acuity: ANGELINA 3 rh 10:59 Presenting complaint: Patient states: pt is having double vision and dizziness that st started this AM. pt had a similar episode on Tuesday and was seen her for it. pt states she has hx of a nerve in her eye that courses these symptoms however Tuesday and today are the first times she has had coordination troubles and twitches. Transition of care: Home. 10:59 Method Of Arrival: Private Vehicle st 11:10 Care prior to arrival: pt took meclazien about [address] Triage Assessment: 11:06 General: Appears uncomfortable, Behavior is cooperative. Pain: Denies pain. EENT: Eyes st no abnormality noted on visual inspection. pt is able to fallow my finger with her eyes.. Reports blurred vision spinning world. Neuro: Level of Consciousness is awake, alert, Oriented to person, place, time, event, Telegraph Editor are equal bilaterally Moves all extremities. Reports diplopia, troubles walking.. Cardiovascular: No deficits noted. Respiratory: No deficits noted. GI: No deficits noted. Historical: - Allergies: TETRACYCLINES; Levaquin; - Home Meds: 1. Wellbutrin XL 300 mg oral Tb24 1 tab once daily for Major Depressive Disorder 2. Lamictal oral 1 tab 2 times per day 3. Seroquel 400 mg oral tab 1 tab once daily 4. clonazepam 1 mg oral tab 1 tab Q HS 5. Ambien 5 mg oral tab 1 tab once daily 6. Deplin 15 mg oral tab 7. Multigen [id number] [id number]-mg oral tab 8. hydrocortisone 10 mg oral tab 9. levothyroxine 25 mcg oral tab 1 tab once daily 10. atorvastatin 10 mg oral tab 1 tab once daily 11. aspirin 81 mg oral tab 1 tab once daily 12. Zyrtec 10 mg oral tab 1 tab once daily 13. Restasis opht - PMHx: DEPRESSION; epilepsy; normal pressure hydrocephaly; ANXIETY; insomnia; hyperlipidemia; allergic rhinitis; Diplopia (July 13, 2016); Ataxic Gait (July 13, 2016); Obstructive Hydrocephalus - NPH (July 13, 2016); - PSHx: sunt; - Tetanus: < 10 years. - Ebola Screening: : Patient denies exposure to infectious person. Patient denies travel to an Ebola-affected area in the 21 days before illness onset. . - Social history: Smoking status: Patient states was never smoker of tobacco. Patient/guardian denies using alcohol, marijuana. Screenin:09 Infectious Disease Risk None. Abuse screen: Denies threats or abuse. Denies injuries st from another. pt feels safe at home. Nutritional screening: No deficits noted. Assessment: 11:45 General: pt has hydrocephalus with a shunt. shunt has been in since 2008.. st Vital Signs: 10:55 BP 164 / 89 LA Sitting (auto/reg); Pulse 85 LA; Resp 14 S; Temp 98.2(O); Pulse Ox 94% em3 on R/A; Weight 68.04 kg (R); Height 5 ft. 10 in. (177.80 cm) (R); Pain 0/10; 12:36 BP 165 / 81; Pulse 82; Pulse Ox 96% ; st 10:55 Body Mass Index 21.52 (68.04 kg, 177.80 cm) em3 ED Course: 10:47 Patient arrived in ED. lm3 10:53 Triage completed. rh 10:56 Valuables Remains with patient Patient has correct armband on for positive em3 identification. Bed in low position. Call light in reach. 10:58 Nan Gunter RN is Primary Nurse. st 10:59 Teddy Awad MD is Attending Physician. sc 11:32 Inserted peripheral IV: 20 gauge in right antecubital area and blood collected. st Administered Medications: 11:32 Drug: NS 0.9% 1000 ml; Route: IV; Rate: bolus; Site: right antecubital; st 12:49 Follow up: IV Status: Infusing continued upon transfer st Outcome: 12:34 ER care complete, transfer ordered by . sc 12:46 [facility] Time: July 16, 2016 at 12:47 Patient's face sheet was faxed to accepting facility. Face Sheet included patient's name, address, age, gender, contact information and insurance information. Patient will be transported by: [facility] [place]. Report called to: Monica BELTRAN Nurse and Physician Charting and Notes were sent to Accepting Facility. All tests and/or procedures with results, if applicable, were sent to accepting facility. 12:46 Condition: stable 12:46 Instructed on need for transfer 12:49 [address] the ED[address] st Signatures: Nan Gunter RN RN st Chew, Scott, MD MD sc Meiklejohn, Beny packer3 Rosaline Lewis, Annabelle 3
== END 2016-07-16 12:49 | disposition short-term general hospital (02) ==
LOC: ER 10:45
DX: G91.1 Obstructive hydrocephalus (principal); R42 Dizziness and giddiness; H53.2 Diplopia; R26.0 Ataxic gait; R53.1 Weakness; R25.1 Tremor, unspecified; H55.00 Unspecified nystagmus; Z79.899 Other long term (current) drug therapy; Z74.3 Need for continuous supervision; Z99.89 Dependence on other enabling machines and devices
CPT/HCPCS: 80048; 85025; 96360; 99285; A0425; A0429